=== PATIENT | female | born 1950 | race Caucasian/White ===

== ENCOUNTER 2024-01-29 05:23 | Observation (INO) ==
[~2024-01-29 05:23] MED LIST: Metoclopramide 5 MG/ML VIAL (10 mg) IV PRN; NS 0.45% 1000 ml BAG 1,000 ML IV SCH; Naloxone 0.4 mg VIAL 0.4 mg/ml 1 ml VIAL IV PRN; Ondansetron 4 mg VIAL 2 MG/ML 2 ml VIAL IV PRN; fentaNYL 100 mcg/2 ml 50 MCG/ML VIAL IV PRN
[2024-01-29] MEDS ORDERED: Tranexamic Acid 1 GM/100ML BAG 2,000 MG/200 ML BAG IV ONE (05:49)
[2024-01-29 06:17] LABS: Rapid COVID-19 Molecular Undetected (Undetected)
[2024-01-29] MEDS ORDERED: ROPIVACAINE 5 MG/ML 30 ML BTL (0.5%) ONE (06:58)
[2024-01-29] MEDS ORDERED: Clindamycin 900 MG/50 **NS BAG 900 MG/50 ML BAG ONE (07:02)
[2024-01-29] MEDS ORDERED: fentaNYL 100 mcg/2 ml 50 MCG/ML VIAL ONE (07:14)
[2024-01-29] MEDS ORDERED: Midazolam 2 mg/2 ml VIAL 1 mg/ml 2 ml VIAL (2 mg) ONE (07:15)
[2024-01-29] MEDS ORDERED: Rocuronium 50 mg VIAL 10 mg/ml 5 ml VIAL (50 mg) ONE (07:16)
[2024-01-29] MEDS ORDERED: HYDROmorphone 0.5 MG/0.5 ML SYRINGE ONE ×2 (08:02→08:15)
[2024-01-29] MEDS ORDERED: Ondansetron 4 mg VIAL 2 MG/ML 2 ml VIAL ONE (08:13)
[2024-01-29] MEDS ORDERED: Dexamethasone IV 4 MG/ML VIAL 1 ml VIAL ONE (08:13)
[2024-01-29] MEDS ORDERED: KETAMINE HCL 10 MG/ML 20 ml VIAL (200 MG) ONE (08:14)
[2024-01-29] MEDS ORDERED: Magnesium Hydroxide LIQ 30 ML UDC PO PRN (10:08)
[2024-01-29] MEDS ORDERED: Morphine 2 MG/ML SYRINGE IV PRN (10:08)
[2024-01-29] MEDS ORDERED: Ondansetron ODT 4 mg TAB 4 MG TAB PO PRN (10:08)
[2024-01-29] MEDS ORDERED: Lactulose 30 ml UDC PO PRN (10:08)
[2024-01-29] MEDS ORDERED: Calcium Carb (TUMS) 500 mg CHEW TAB PO PRN (10:08)
[2024-01-29] MEDS: Buffered Lidocaine 1% SYRIN 1 ml INTRADERM ONE (11:33)
[2024-01-29] MEDS: Acetaminophen IV 1 GM/100ML 1,000 MG/100 ML BAG IV ONE (11:33)
[2024-01-29] MEDS: Scopolamine 1 mg/72hr PATCH TRANSDERM ONE (11:33)
[2024-01-29] MEDS: Lactated Ringers 1000 ml BAG 1,000 ML IV SCH ×2 (11:34→12:01)
[2024-01-29] MEDS: Ondansetron 4 mg VIAL 2 MG/ML 2 ml VIAL IV PRN (12:01)
[2024-01-29] MEDS: ceFAZolin 2 GM PREMIX 2 GM/50 ML BAG IV SCH (14:10)
[2024-01-29] MEDS: Prochlorperazine 5 mg/ml 2 ml VIAL (10 mg) IV PRN (14:25)
[2024-01-29] MEDS: Clindamycin 900 MG/D5W BAG 900 MG/50 ML BAG IVPB SCH (15:28)
[2024-01-29 15:34] VITALS: BP 96/61
[2024-01-29] MEDS ORDERED: Magnesium Hydroxide LIQ 30 ML UDC PO SCH (21:00)
[2024-01-30] MEDS ORDERED: Vitamin THERAPEUTIC TAB PO SCH (09:00)
== END 2024-01-29 16:53 | disposition home or self-care (01) ==
LOC: OR 05:23 → SSU 05:23
PROVIDERS: ADMIT Orthopaedic Surgery Adult Reconstructive Orthopaedic Surgery; ATTEND Orthopaedic Surgery Adult Reconstructive Orthopaedic Surgery